=== PATIENT | male | born 1985 | race Caucasian/White ===

== ENCOUNTER 2017-02-10 17:56 | Emergency (ER) | payer OTHER ==
[2017-02-10] MEDS ORDERED: ONDANSETRON HCL 4 MG/2 ML VIAL ONE (19:18)
--- NOTE | 2017-02-10 20:10 | ER NURSING DOCUMENTATION ---
Nurse's Notes [facility] Name:Alverto Cross Age:31 yrs Sex:Male :1985 Arrival Date:02/10/2017 Time:17:56 Bed5 Private MD:No PCP, Identified Diagnosis:Dyspnea Presentation: 02/10 17:58 Transition of care: patient was not received from another setting of care. tg 17:58 Acuity: TABBY 4 tg 18:00 Presenting complaint: Patient states: Pt reports SOB, vomit x1 today. tg 18:00 Method Of Arrival: Private Vehicle tg Triage Assessment: 18:08 General: Appears in no apparent distress, Behavior is anxious, cooperative. Pain: tg Denies pain. Neuro: No deficits noted. Cardiovascular: Capillary refill < 3 seconds. Respiratory: Airway is patent Respiratory effort is even, unlabored, Breath sounds are clear bilaterally. GI:. Derm: Skin is pink, warm & dry. Historical: - Allergies: No known drug Allergies; - Home Meds: 1. None - PMHx: None; stomach ulcer in August; - PSHx: None; - Tetanus: unknown. - Ebola Screening: : Patient negative for fever greater than or equal to 101.5 degrees Fahrenheit, and additional compatible Ebola Virus Disease symptoms. Patient denies exposure to infectious person. Patient denies travel to an Ebola-affected area in the 21 days before illness onset. No symptoms or risks identified at this time. . - Immunization history: Unable to Obtain. - Social history: Smoking status: Patient states was never smoker of tobacco. Screenin:09 Infectious Disease Risk Unable to Obtain. Abuse screen: Denies threats or abuse. Denies tg injuries from another. Nutritional screening: No deficits noted. 20:09 Suicide Risk Assessment: Total Suicide Risk Assessment Score: 0. bw2 Vital Signs: 18:05 BP 115 / 79; Pulse 88; Resp 24; Pulse Ox 97% ; Weight 84 kg (R); Height 6 ft. 2 in. tg (187.96 cm) (R); 20:09 BP 122 / 62; Pulse 74; Resp 17; Pulse Ox 94% on R/A; bw2 18:05 Body Mass Index 23.78 (84.00 kg, 187.96 cm) tg ED Course: 17:57 Patient arrived in ED. ds 17:57 No PCP, Identified is Private Physician. ds 17:58 Michael Timmons RN is Primary Nurse. tg 17:58 Triage completed. tg 17:58 Jayesh Mauricio MD is Attending Physician. sc 18:09 Arm band placed on. tg 18:09 Valuables Remains with patient. tg 18:24 Inserted peripheral IV: 18 gauge in left forearm and blood collected. tg 18:54 Attending Physician role handed off by Jayesh Mauricio MD jm 18:54 Robbie Chadwick MD is Attending Physician. 19:28 pt able to drink without nausea or vomiting. bw2 Administered Medications: 18:15 Drug: NS 0.9% 1000 ml; Route: IV; Rate: bolus; Site: right forearm; tg 18:53 Follow up: IV Status: Completed infusion; IV Intake: 1000ml tg 19:07 Drug: Zofran 8 mg; Route: IVP; Infused Over: 2 mins; Site: right hand; bw2 19:28 Follow up: Response: No adverse reaction; Nausea is decreased bw2 20:03 Drug: Zofran 1 tablet; Route: PO; bw2 20:08 Follow up: Response: Pharmacy closed - take home med pack bw2 Intake: 18:53 IV: 1000ml; Total: 1000ml. tg Outcome: 19:55 Discharge ordered by . 20:09 Discharged to home ambulatory. bw2 20:09 Condition: good 20:09 Discharge Assessment: Patient awake, alert and oriented x 3. No cognitive and/or functional deficits noted. Patient verbalized understanding of disposition instructions. 20:09 Discharge instructions given to patient, Instructed on discharge instructions, Demonstrated understanding of instructions. 20:10 Patient left the ED. bw2 02/11 09:00 Discharge F/U Call: Spoke with: patient. other: Name: Pt symptoms did not improve so mk2 he went down the hill to lower elevation this morning. Signatures: Michael Timmons, RN RN tg Srot, Dianne, Reg Reg ds Jayesh Mauricio MD MD sc Meyer, John, MD MD jm Kruger, Meg, RN RN [facility] Melany Diazh bw2
--- NOTE | 2017-02-10 20:10 | ER PHYSICIAN DOCUMENTATION ---
Physician Documentation [facility] Name:Alverto Cross Age:31 yrs Sex:Male :1985 Arrival Date:02/10/2017 Time:17:56 Bed5 Private MD:No PCP, Identified ED Sheng Robbie Disposition: 02/10/17 19:55 Discharged to Home/Self Care. Impression: Dyspnea. - Condition is Good. - Discharge Instructions: DYSPNEA, Altitude - ALTITUDE SICKNESS. - Medical Reconciliation form form. - Follow up: Private Physician; When: As needed; Reason: Continuance of care. - Problem is new. - Symptoms have improved. Historical: - Allergies: No known drug Allergies; - Home Meds: 1. None - PMHx: None; stomach ulcer in August; - PSHx: None; - Tetanus: unknown. - Ebola Screening: : Patient negative for fever greater than or equal to 101.5 degrees Fahrenheit, and additional compatible Ebola Virus Disease symptoms. Patient denies exposure to infectious person. Patient denies travel to an Ebola-affected area in the 21 days before illness onset. No symptoms or risks identified at this time. . - Immunization history: Unable to Obtain. - Social history: Smoking status: Patient states was never smoker of tobacco. Vital Signs: 02/10 18:05 BP 115 / 79; Pulse 88; Resp 24; Pulse Ox 97% ; Weight 84 kg (R); Height 6 ft. 2 in. tg (187.96 cm) (R); 20:09 BP 122 / 62; Pulse 74; Resp 17; Pulse Ox 94% on R/A; bw2 18:05 Body Mass Index 23.78 (84.00 kg, 187.96 cm) tg MDM: 17:58 Patient medically screened. sc Dispensed Medications: 18:15 Drug: NS 0.9% 1000 ml; Route: IV; Rate: bolus; Site: right forearm; tg 18:53 Follow up: IV Status: Completed infusion; IV Intake: 1000ml tg 19:07 Drug: Zofran 8 mg; Route: IVP; Infused Over: 2 mins; Site: right hand; bw2 19:28 Follow up: Response: No adverse reaction; Nausea is decreased bw2 20:03 Drug: Zofran 1 tablet; Route: PO; bw2 20:08 Follow up: Response: Pharmacy closed - take home med pack bw2 Signatures: Michael Timmons, RN RN tg Jayesh Mauricio MD MD sc Meyer, John, MD MD jm Wisely, Glenis bw2
[2017-02-10] MEDS ORDERED: ONDANSETRON ODT PREPAC 4 MG TAB.RAPDIS PO ONE (20:15)
== END 2017-02-10 20:10 | disposition home or self-care (01) ==
LOC: ER 17:56
DX: R06.00 Dyspnea, unspecified (principal); R06.02 Shortness of breath; R11.0 Nausea; E86.0 Dehydration; F41.9 Anxiety disorder, unspecified
CPT/HCPCS: 96361; 96374; 99283; J2405